=== PATIENT | male | born 1955 | race Caucasian/White ===

== ENCOUNTER 2017-04-15 17:04 | Emergency (ER) | payer BC ==
[~2017-04-15] VITALS: Ht 162.6 cm; Wt 90.7 kg
[2017-04-15] MEDS ORDERED: FENO54TA PO (17:17)
[2017-04-15] MEDS ORDERED: VALS160T24 PO (17:17)
[2017-04-15] MEDS ORDERED: BUPR-51 PO (17:17)
[2017-04-15] MEDS ORDERED: MIRT30TA7 PO (17:17)
[2017-04-15] MEDS ORDERED: ATOR10TA PO (17:17)
[2017-04-15] MEDS ORDERED: HYDROMORPHONE 1 MG/1 ML DISP.SYRIN IM ONE (17:30)
[2017-04-15] MEDS ORDERED: PROMETHAZINE HCL 25 MG/1 ML VIAL IM ONE (17:30)
--- NOTE | 2017-04-15 17:41 | NUR ---
Patient discharged to home in stable conditon. Written and verbal after care instructions given to patient and family. Patient and family verbalized understanding of instructions.
[2017-04-15] MEDS ORDERED: HYDROMORPHONE 2 MG/1 ML DISP.SYRIN ONE (17:46)
[2017-04-15] MEDS ORDERED: PROMETHAZINE HCL 25 MG/1 ML VIAL ONE (17:47)
== END 2017-04-15 17:42 | disposition home or self-care (01) ==
LOC: ER 17:21
DX: M25.512 Pain in left shoulder (principal); M79.602 Pain in left arm; I10 Essential (primary) hypertension; E78.5 Hyperlipidemia, unspecified
CPT/HCPCS: 96372 ×2; 99284; A4663; J1170; J2550

== ENCOUNTER 2017-05-17 11:26 | Emergency (ER) | payer BC ==
[~2017-05-17] VITALS: Ht 162.6 cm; Wt 90.7 kg
[~2017-05-17 11:26] MED LIST: ATOR10TA PO; BUPR-51 PO; FENO54TA PO; MIRT30TA7 PO; VALS160T24 PO
--- NOTE | 2017-05-17 11:33 | NUR ---
pt is in room #2b. dr perez evaluated the pt.
--- NOTE | 2017-05-17 11:56 | NUR ---
pt was d/c to home. d/c instructions given to the pt.
[2017-05-17 11:59] VITALS: BP 136/88
== END 2017-05-17 11:59 | disposition home or self-care (01) ==
LOC: ER 11:26
DX: G89.29 Other chronic pain (principal); M54.12 Radiculopathy, cervical region; I10 Essential (primary) hypertension; E78.5 Hyperlipidemia, unspecified; Z90.49 Acquired absence of other specified parts of digestive tract
CPT/HCPCS: 99283; A4663